=== PATIENT | female | born 1975 | race Hispanic/Latino ===

== ENCOUNTER → 2019-10-31 | Day surgery (SDC) | payer OTHER ==
[2019-10-26 16:31] LABS: BASOPHILS # (AUTO) 0.1 (0.0-0.1); BASOPHILS % 0.5 % (0.0-1.0); EOSINOPHILS # (AUTO) 0.2 (0.0-0.4); EOSINOPHILS % 2.2 % (0.0-6.0); HEMATOCRIT 36.3 % (34.2-44.1); HEMOGLOBIN 11.6 g/dL (12.0-16.0); LYMPHOCYTES # (AUTO) 3.5 (1.0-3.2); LYMPHOCYTES % 32.6 % (18.0-39.1); MEAN CORPUSCULAR HEMOGLOBIN 26.4 pg (28-32); MEAN CORPUSCULAR VOLUME 82.7 fL (81-99); MONOCYTES # (AUTO) 0.8 (0.2-0.8); MONOCYTES % 7.4 % (4.4-11.3); NEUTROPHILS # (AUTO) 6.1 (2.1-6.9); NEUTROPHILS % 56.9 % (38.7-80.0); PLATELET COUNT 322 x10e3/uL (140-360); RED BLOOD COUNT 4.39 x10e6/uL (3.6-5.1); RED CELL DISTRIBUTION WIDTH 15.6 % (11.7-14.4)
[~2019-10-31] MED LIST: AMOXICILLIN500 M1 PO; CLARITHROMYCIN500 MG PO; DEXAMETHASONE SOD PHOS INJ 4 MG/ML VIAL ONE; HYDROMORPHONE 1MG/1ML INJ ONE; IRON PO; KETOROLAC TROMETHAMINE 30 MG/ML VIAL ONE; LIDOCAINE HCL 2% JELLY 5 ML TUBE ONE; LIDOCAINE HCL 2% LOCAL INJ 5 ML SDV VIAL INJ ONE; ONDANSETRON HCL INJ 2MG/ML 2ML 2 MG/ML VIAL ONE; PROPOFOL IV EMULSION 10 MG/ML 20 ML VIAL ONE; SEVOFLURANE INHAL SOLN 250 ML PEN BTL ONE
[2019-10-31 13:30] VITALS: BP 169/96
--- NOTE | 2019-10-31 14:21 | Operative Report ---
DATE OF PROCEDURE: SURGEON: Sena Huang MD PREOPERATIVE DIAGNOSIS: Abnormal uterine bleeding. POSTOPERATIVE DIAGNOSIS: Abnormal uterine bleeding. PROCEDURES: Hysteroscopy, endometrial ablation. COMPLICATIONS: None. ESTIMATED BLOOD LOSS: Minimal. DESCRIPTION OF PROCEDURE: The patient was taken to OR. General anesthesia was induced. She was prepped and draped in a sterile fashion, placed in dorsal lithotomy position. After examination under anesthesia, revealed bulky uterus mobile. No adnexal masses. Cavity length measured about 9 cm. Cervix was about 2 cm. Cervix was dilated to Hegar's 8. Hysteroscope was introduced and showed normal cavity. Hysteroscope was removed and Lisa endometrial ablation kit was placed through the cervix into the uterine cavity and deployed. 3 minutes was used for endometrial ablation. Lisa was removed. Hysteroscope was introduced, that showed ablation of the endometrium. The patient tolerated the procedure well. Laps and needle counts were correct x2 at the end of procedure. Sena Huang MD DD/TISHA /[id number]
== END | disposition home or self-care (01) ==
LOC: OR 09:25
PROVIDERS: ATTEND Obstetrics & Gynecology
DX: N93.8 Other specified abnormal uterine and vaginal bleeding (principal); D50.9 Iron deficiency anemia, unspecified; I10 Essential (primary) hypertension; Z01.812 Encounter for preprocedural laboratory examination; Z11.59 Encounter for screening for other viral diseases; Z68.34 Body mass index [BMI] 34.0-34.9, adult
CPT/HCPCS: 36415; 58563; 81025; 84702; 85025; J1100; J1170; J1885; J2001 ×2; J2405; J2704; U0002